=== PATIENT | female | born 1980 | race Hispanic/Latino ===

== ENCOUNTER 2024-06-04 06:53 | Inpatient (IN) | payer OTHER ==
[2024-06-04] VITALS (45 sets, daily range): BP systolic 101–145; BP diastolic 67–100; PULSE 62–132; RESP 18–58; O2SAT 99–100
[~2024-06-04] VITALS: Ht 154.9 cm; Wt 84.2 kg
[2024-06-04 07:14] LABS: BASOPHILS # (AUTO) 0.06 K/uL (0.00-0.20); BASOPHILS % (AUTO) 0.5 % (0.0-5.0); EOSINOPHILS % (AUTO) 0.9 % (0.0-8.0); HEMATOCRIT 36.6 % (36-48); IMMATURE GRANULOCYTE ABSOLUTE 0.04 K/uL (0-1); LYMPHOCYTES % (AUTO) 18.5 % (21.0-51.0); MEAN CORPUSCULAR HEMOGLOBIN 32.7 pg (27.0-33.0); MEAN CORPUSCULAR HGB CONC 35.8 g/dL (32.0-36.0); MEAN CORPUSCULAR VOLUME 91.3 fL (79-99); MONOCYTES # (AUTO) 0.5 K/uL (0.1-1.0); MONOCYTES % (AUTO) 4.1 % (3.0-13.0); NEUTROPHILS # (AUTO) 8.3 K/uL (1.8-7.7); NEUTROPHILS % (AUTO) 75.6 % (40.0-77.0); PLATELET COUNT (AUTO) 351 K/uL (130-400); RED BLOOD CELL COUNT(AUTO) 4.01 MIL/uL (4.00-5.50); RED CELL DISTRIBUTION WIDTH 12.8 % (11.0-15.5); WHITE BLOOD COUNT (AUTO) 10.9 K/uL (4.8-10.8)
[2024-06-04 07:25] LABS: CARBON DIOXIDE 20 mmol/L (21-32); CHLORIDE 106 mmol/L (101-111); CREATININE 0.9 mg/dL (0.5-1.0); GLOMERULAR FILTR. RATE CALC 82 mL/min (>90); GLUCOSE,RANDOM 151 mg/dL (70-105); POTASSIUM 3.3 mmol/L (3.5-5.1); SODIUM SERUM 141 mmol/L (136-145); UREA NITROGEN, BLOOD 5 mg/dL (7-18)
[2024-06-04 07:29] LABS: ALANINE AMINOTRANSFERASE 21 U/L (12-78); ALBUMIN 3.7 g/dL (3.5-5.0); ALCOHOL, BLOOD 58 mg/dL (0-10); ASPARTATE AMINOTRANSFERASE 19 U/L (10-37); BILIRUBIN,TOTAL 0.3 mg/dL (0.2-1.0); TOTAL PROTEIN, SERUM 7.9 g/dL (6.0-8.3)
[2024-06-04 07:31] LABS: ACETAMINOPHEN < 1 mcg/mL (10-30); SALICYLATE < 2.8 mg/dL (2.8-20.0)
[2024-06-04 08:18] LABS: AMPHET/METH SCREEN,URINE POSITIVE (NEGATIVE); BARBITURATE SCREEN, URINE NEGATIVE (NEGATIVE); BENZODIAZEPINES SCREEN,URINE POSITIVE (NEGATIVE); CANNABINOID SCREEN,URINE NEGATIVE (NEGATIVE); COCAINE SCREEN,URINE POSITIVE (NEGATIVE); OPIATE SCREEN,URINE NEGATIVE (NEGATIVE); PHENCYCLIDINE SCREEN,URINE NEGATIVE (NEGATIVE)
[2024-06-04 08:56] LABS: ABG BASE EXCESS -7.7 mmol/L (-2.0-3.0); ABG HCO3 15.8 mmol/L (21.0-28.0); ABG OXYGEN SATURATION 98.2 % (95.0-99.0); ABG PCO2 28 mmHg (32-45); ABG PH 7.374 (7.35-7.450); PO2, ARTERIAL BG 115.4 mmHg (83.0-108.0); VENT MODE, BG AC (ROOM AIR)
[2024-06-04] MEDS ORDERED: DiphenhydrAMINE HCL 50 MG/ML VIAL IV PRN (09:00)
[2024-06-04] MEDS ORDERED: CHLORDIAZEPOXIDE HCL 25 MG CAP PO PRN (09:00)
[2024-06-04] MEDS ORDERED: NITROGLYCERIN 0.4 MG SL TAB SL PRN (09:00)
[2024-06-04] MEDS ORDERED: ENOXAPARIN SODIUM 40 MG/0.4 ML SYRINGE SQ SCH (09:00)
[2024-06-04] MEDS ORDERED: PHARMACY COMMUNICATION MISC PRN (09:00)
[2024-06-04] MEDS ORDERED: LORAZEPAM 2 MG/ML 1 ML VIAL IVP PRN (09:00)
[2024-06-04] MEDS ORDERED: MAG/ALUM/SIMETH 30 ML UDCUP PO PRN (09:00)
[2024-06-04] MEDS ORDERED: LACTULOSE 20 GM/30 ML UDCUP PO PRN (09:00)
[2024-06-04] MEDS ORDERED: GUAIFENESIN-DM 200/20 MG 10 ML PO PRN (09:00)
[2024-06-04] MEDS: PROPOFOL 1000 MG/100 ML 100 ML IV ONE (09:15)
[2024-06-04] MEDS: 0.9%NACL 1000ML 1,000 ML IV SCH ×2 (09:17→10:23)
[2024-06-04] MEDS: THIAMINE HCL 100 MG, FOLIC ACID 1 MG, M.V.I. IV [ADULT] 10 ML in 0.9%NACL 1000ML 1,000 ML IV SCH (10:23)
[2024-06-04] MEDS: ARTIFICAL TEARS SOL 15 ML OU SCH (11:00)
[2024-06-04] MEDS: DEXMEDETOMIDINE 400MCG/NS100ML IV SCH (11:53)
[2024-06-04] MEDS ORDERED: ROCURONIUM BROMIDE 10MG/1ML 5ML VL IV ONE (13:41)
[2024-06-04] MEDS ORDERED: EPINEPHRINE 1MG/10ML(1:10,000) 0.1 MG/ML SYG IVP ONE (13:42)
[2024-06-04 15:41] LABS: APPEARANCE,URINE CLEAR (CLEAR); BILIRUBIN,URINE NEGATIVE (NEGATIVE); COLOR,URINE LIGHT-YELLOW (YELLOW); GLUCOSE, URINE (UA) NEGATIVE (NEGATIVE); KETONES,URINE NEGATIVE (NEGATIVE); LEUKOCYTE ESTERASE ,URINE NEGATIVE Leu/uL (NEGATIVE); NITRATE,URINE NEGATIVE (NEGATIVE); OCCULT BLOOD,URINE NEGATIVE (NEGATIVE); PH,URINE 5.5 (5.0-8.0); PROTEIN,URINE 30 mg/dL (NEGATIVE); UROBILINOGEN,URINE 0.2 mg/dL (0.2-1.0)
[2024-06-04 15:43] LABS: HCG,QUALITATIVE URINE NEGATIVE (NEGATIVE)
[2024-06-04 15:44] LABS: ADD UA MICROSCOPIC YES
[2024-06-04 15:50] LABS: MUCUS,URINE RARE LPF (None Seen); SQUAMOUS EPITHELIAL CELL,UR RARE /HPF (0-2); WBC,URINE 0-1 /HPF (0-1)
[2024-06-04] MEDS: PROPOFOL 1000 MG/100 ML IV PRN (16:41)
[2024-06-04] MEDS: CHLORHEXIDINE GLUCONATE 15 ML MOUTHWASH MM SCH (16:43)
[2024-06-04] MEDS ORDERED: MAGNESIUM 2GM PREMIX 50ML 50 ML IV PRN (17:00)
[2024-06-04] MEDS ORDERED: KCL 20 MEQ ERTAB PO PRN (17:00)
[2024-06-04] MEDS ORDERED: POTASSIUM CHLORIDE 10% ELIXIR 20 MEQ/15 ML UDCUP PO PRN (17:00)
[2024-06-04] MEDS ORDERED: POTASSIUM CHLORIDE 20MEQ/100ML 100 ML IV PRN ×2 (17:00)
[2024-06-04 17:23] LABS: COVID19 (SARS ANTIGEN RAPID) PRESUMPTIVE NEGATIVE (NEGATIVE); INFLUENZA TYPE A Negative For Type A (NEGATIVE); INFLUENZA TYPE B Negative For Type B (NEGATIVE)
[2024-06-04] MEDS: POTASSIUM CHLORIDE 10% ELIXIR 20 MEQ/15 ML UDCUP PO PRN (17:50)
[2024-06-04] MEDS: CEFTRIAXONE 2GM VIAL IVPB SCH (17:50)
[2024-06-04] MEDS: PANTOPRAZOLE 40 MG/VIAL IVP SCH (20:50)
[2024-06-05] VITALS (51 sets, daily range): BP systolic 101–138; BP diastolic 70–97; PULSE 61–101; RESP 16–29; TEMP 99.1; O2SAT 96–100
[2024-06-05 03:35] LABS: ABG BASE EXCESS -2.4 mmol/L (-2.0-3.0); ABG HCO3 18.7 mmol/L (21.0-28.0); ABG PCO2 24 mmHg (32-45); ABG PH 7.504 (7.35-7.450); DEVICE COMMENT LR PAULIERN; PO2, ARTERIAL BG 134.7 mmHg (83.0-108.0); VENT MODE, BG AC (ROOM AIR)
[2024-06-05 04:10] LABS: BASOPHILS # (AUTO) 0.03 K/uL (0.00-0.20); BASOPHILS % (AUTO) 0.3 % (0.0-5.0); EOSINOPHILS # (AUTO) 0.17 K/uL (0.00-0.70); EOSINOPHILS % (AUTO) 1.8 % (0.0-8.0); HEMATOCRIT 29.7 % (36-48); IMMATURE GRANULOCYTE ABSOLUTE 0.03 K/uL (0-1); LYMPHOCYTES # (AUTO) 1.6 K/uL (1.0-4.8); LYMPHOCYTES % (AUTO) 17.4 % (21.0-51.0); MEAN CORPUSCULAR HEMOGLOBIN 31.7 pg (27.0-33.0); MEAN CORPUSCULAR HGB CONC 34.7 g/dL (32.0-36.0); MEAN CORPUSCULAR VOLUME 91.4 fL (79-99); MONOCYTES # (AUTO) 0.5 K/uL (0.1-1.0); MONOCYTES % (AUTO) 4.8 % (3.0-13.0); NEUTROPHILS % (AUTO) 75.4 % (40.0-77.0); PLATELET COUNT (AUTO) 249 K/uL (130-400); RED BLOOD CELL COUNT(AUTO) 3.25 MIL/uL (4.00-5.50); RED CELL DISTRIBUTION WIDTH 12.9 % (11.0-15.5); WHITE BLOOD COUNT (AUTO) 9.3 K/uL (4.8-10.8)
[2024-06-05 04:29] LABS: ALBUMIN 2.6 g/dL (3.5-5.0); BILIRUBIN,TOTAL 0.4 mg/dL (0.2-1.0); CREATININE 0.7 mg/dL (0.5-1.0); MAGNESIUM 1.8 mg/dL (1.80-2.40); PHOSPHORUS 1.6 mg/dL (2.5-4.9); TOTAL PROTEIN, SERUM 5.9 g/dL (6.0-8.3)
[2024-06-05 04:31] LABS: POTASSIUM 2.9 mmol/L (3.5-5.1)
[2024-06-05] MEDS: MAGNESIUM 2GM PREMIX 50ML 50 ML IV PRN (04:49)
[2024-06-05] MEDS ORDERED: POTASSIUM PHOS 15 mMOL+NS250ML 250 ML IV PRN (06:30)
[2024-06-05] MEDS: THIAMINE HCL 100 MG/ML 2ML VIAL IVP SCH (08:52)
[2024-06-05] MEDS: FOLIC ACID 5 MG/ML VIAL IV SCH (08:53)
[2024-06-05] MEDS: DIAZEPAM 5 MG TABLET PO PRN (08:54)
[2024-06-05] MEDS: MULTIVITAMIN TABLET PO SCH (08:55)
[2024-06-05] MEDS: POLYETHYLENE GLYCOL 3350 17 GM POWD.PACK PO SCH (09:00)
[2024-06-05 09:10] LABS: MAGNESIUM 1.6 mg/dL (1.80-2.40)
[2024-06-05] MEDS: POTASSIUM CHLORIDE 20MEQ/100ML 100 ML IV PRN (09:47)
[2024-06-05] MEDS: ONDANSETRON 4MG INJ IV PRN (11:30)
[2024-06-05] MEDS: KCL 20 MEQ ERTAB PO SCH (13:00)
[2024-06-05] MEDS ORDERED: DEXT15CA PO (13:52)
[2024-06-05] MEDS ORDERED: BUPR-49 PO (13:52)
[2024-06-05] MEDS ORDERED: PRAZ1CAP5 PO (13:52)
[2024-06-05] MEDS ORDERED: CLON2TAB11 PO (13:52)
[2024-06-05 13:55] LABS: MAGNESIUM 2.7 mg/dL (1.80-2.40)
[2024-06-05] MEDS: ACETAMINOPHEN 325 MG TAB PO PRN (16:31)
[2024-06-05] MEDS: SUCRALFATE 1 GM TABLET PO SCH (20:18)
[2024-06-06] VITALS (7 sets, daily range): BP systolic 115–133; BP diastolic 77–88; PULSE 83–98; RESP 18; O2SAT 92–100
[2024-06-06] MEDS: ACETAMINOPHEN 325 MG TAB PO PRN (00:22)
[2024-06-06] MEDS: IPRATROPIUM/ALBUTEROL SULFATE 3 ML SOLUTION IH ONE (00:36)
[2024-06-06 03:23] LABS: BASOPHILS # (AUTO) 0.06 K/uL (0.00-0.20); BASOPHILS % (AUTO) 0.6 % (0.0-5.0); EOSINOPHILS # (AUTO) 0.29 K/uL (0.00-0.70); EOSINOPHILS % (AUTO) 2.7 % (0.0-8.0); HEMATOCRIT 31.9 % (36-48); IMMATURE GRANULOCYTE ABSOLUTE 0.03 K/uL (0-1); LYMPHOCYTES # (AUTO) 1.7 K/uL (1.0-4.8); LYMPHOCYTES % (AUTO) 15.7 % (21.0-51.0); MEAN CORPUSCULAR HEMOGLOBIN 32.4 pg (27.0-33.0); MEAN CORPUSCULAR HGB CONC 34.2 g/dL (32.0-36.0); MEAN CORPUSCULAR VOLUME 94.9 fL (79-99); MONOCYTES # (AUTO) 0.6 K/uL (0.1-1.0); MONOCYTES % (AUTO) 5.6 % (3.0-13.0); NEUTROPHILS # (AUTO) 8.1 K/uL (1.8-7.7); NEUTROPHILS % (AUTO) 75.1 % (40.0-77.0); PLATELET COUNT (AUTO) 260 K/uL (130-400); RED BLOOD CELL COUNT(AUTO) 3.36 MIL/uL (4.00-5.50); RED CELL DISTRIBUTION WIDTH 13.1 % (11.0-15.5); WHITE BLOOD COUNT (AUTO) 10.7 K/uL (4.8-10.8)
[2024-06-06 03:32] LABS: CREATININE 0.9 mg/dL (0.5-1.0); MAGNESIUM 2.1 mg/dL (1.80-2.40); PHOSPHORUS 2.5 mg/dL (2.5-4.9); POTASSIUM 3.5 mmol/L (3.5-5.1)
[2024-06-06] MEDS: KCL 20 MEQ ERTAB PO PRN (04:59)
[2024-06-06] MEDS ORDERED: COMPOUND IV REFRIGERATED 1 EACH IVSOLN MISC PRN (08:00)
== END 2024-06-06 15:05 | DRG 917 ==
LOC: EDH 06:53 → EDHIP 08:48 → 2CH 12:11 → 2BH 15:15 → 2DH 06-05 15:29
PROVIDERS: ADMIT Internal Medicine; ATTEND Internal Medicine
PROC: 0BH17EZ Insertion of Endotracheal Airway into Trachea, Via Natural or Artificial Opening (ICD-10-PCS; principal; 2024-06-04)
PROC: 5A1945Z Respiratory Ventilation, 24-96 Consecutive Hours (ICD-10-PCS; 2024-06-04)
DX: T42.4X4A Poisoning by benzodiazepines, undetermined, initial encounter (principal); G92.8 Other toxic encephalopathy; J96.01 Acute respiratory failure with hypoxia; S60.222A Contusion of left hand, initial encounter; F43.10 Post-traumatic stress disorder, unspecified; F31.9 Bipolar disorder, unspecified; F14.10 Cocaine abuse, uncomplicated; F10.10 Alcohol abuse, uncomplicated; E87.6 Hypokalemia; F41.9 Anxiety disorder, unspecified; F90.9 Attention-deficit hyperactivity disorder, unspecified type; X78.9XXA Intentional self-harm by unspecified sharp object, initial encounter; Y04.0XXA Assault by unarmed brawl or fight, initial encounter
CPT/HCPCS: 31500; 36415; 36600; 70450; 71045; 73130; 80048; 80053; 80305; 81001; 81025; 82140; 82803; 83605; 83735; 84100; 84132; 84443; 84703; 85025; 87071; 87205; 87426; 87804; 92522; 92610; 93005; 94002; 94003; 94640; 94664; 99291; G0378; G0481; J0171; J0696; J2405; J2470; J2704; J3411; J3475; J3480; J3490; J7030; A9900

== ENCOUNTER → 2025-02-18 | Outpatient (CLI) | payer OTHER ==
[~2025-02-18] MED LIST: BUPR-49 PO; CLON2TAB11 PO; DEXT15CA PO; PRAZ1CAP5 PO
== END | disposition home or self-care (01) ==
LOC: RAH 13:26
PROVIDERS: ATTEND Obstetrics & Gynecology
DX: Z12.31 Encounter for screening mammogram for malignant neoplasm of breast (principal)
CPT/HCPCS: 77067

== ENCOUNTER 2025-05-19 12:48 | Emergency (ER) | payer OTHER ==
[~2025-05-19] VITALS: Ht 157.5 cm; Wt 81.2 kg
--- NOTE | 2025-05-19 14:44 | ERN ---
ED Note History of Present Illness Stated Complaint: HEADACHES Chief Complaint: Headache Time Seen by MD: 12:55 Time Seen by Midlevel: 12:58 Dictation: 44-year-old female complaining of a headache that has been going on for two weeks. Patient states she usually has migraines that caused photophobia and phonophobia. Patient states has a time if she has a migraine she also gets a little bit of blurry vision this has been going on for six years. Patient is requesting a CT of the head. Allergies: Coded Allergies: Unable to Assess (Unverified Allergy, Unknown, 06/04/24) Home Meds Reported Medications Prazosin HCl (Prazosin HCl) 1 Mg Capsule, 1 CAP PO HS for nightmares 06/05/24 Bupropion HCl (Bupropion Xl) 150 Mg Tab.er.24h, 1 TAB PO DAILY 06/05/24 Dextroamphetamine/Amphetamine (Dextroamp-Amphet ER 15 mg Cap) 15 Mg Cap.er.24h, 1 CAP PO DAILY 06/05/24 Clonazepam (Clonazepam) 2 Mg Tablet, 1 TAB PO BID PRN for anxiety prn for anxiety 06/05/24 Past Medical History Past Medical History: Anxiety, Depression Surgical History: Other Surgical History Other: OOPHRECTOMY LEFT, NOSE RECONTRUCTION AFTER DOG BITE Family History: Negative LMP: Apr 25, 2025 : 0 Review of System Dictation Constitutional: Negative for fever,chills, and weight loss Eyes: Negative for injury, pain,redness, and discharge ENT: Negative for injury,pain or swelling Cardiovascular: Negative for chest pain, palpitations, and edema Respiratory: Negative for shortness of breath, cough, and wheezing, Abdomen/GI: Negative for abdominal pain, nausea, vomiting, diarrhea, and constipation Back: Negative for injury and pain : Negative for injury, bleeding and discharge MS/Extremity: Negative for injury and deformity Skin: Negative for rash, and discoloration Neuro: Complaining of headache Psych: Negative for suicide ideation, homicidal ideation, and hallucinations Review of Systems: was completed Initial Vital Sign VS Vital Signs Date Time Temp Pulse Resp B/P (MAP) Pulse Ox O2 Delivery O2 Flow Rate FiO2 05/19/25 12:48 98.8 77 20 118/77 100 Room Air 0 05/19/25 15:10 21 Physical Exam Dictation General: awake, alert, NAD Head/Face: Normocephalic, atraumatic Eyes: PERRL, EOMI, vision at baseline ENT: oral cavity clear, TMs clear, no signs of infection Neck: Trachea midline, supple, no nuchal rigidity Cardiovascular: RRR, normal S1/S2, No MRGs, no JVD Respiratory: CTAB, no respiratory distress, No rales or wheezes Abdomen: Soft, non-tender, non-distended, normal bowel sounds, no guarding or rebound. Skin: Warm, dry, normal turgor, no rash MS/Extremity: Pulses equal, no cyanosis, neurovascular intact, FROM Neuro: COAx4, GCS 15, strength 5/5, CN 2-12 intact, normal cerebellar exam, normal gait, Psych: Normal behavior, mood, and affect normal Results (Laboratory/Radiology) CT Scan Comment: [address] [place] [id number] IMAGING REPORT Signed PATIENT: ADRIENNE DREW MR#: [id number] : 1980 SEX: F AGE: 44 LOCATION: [facility] ORDER [id number] STATUS: [facility] REPORT#: [id number] SERVICE [id number] REASON: headache > 2weeks ORDERING PHYSICIAN: CHUCK WHITFIELD NP PROCEDURE: HEAD WO - CT HEAD/BRAIN W/O CONTRAST EXAM: CT Head Without IV contrast. CLINICAL HISTORY: headache > 2weeks TECHNIQUE: Axial computed tomography images of the head/brain without intravenous contrast. COMPARISON: Study dated 06/04. FINDINGS: BRAIN: No evidence of acute hemorrhage. No mass lesion. No CT evidence for acute territorial infarct. No midline shift or extra-axial collections. VENTRICLES: No hydrocephalus. ORBITS: The orbits are unremarkable. SINUSES AND MASTOIDS: The paranasal sinuses and mastoid air cells are clear. BONES: No fracture. SOFT TISSUES: Unremarkable. IMPRESSION: 1. No acute intracranial findings. /[place] DICTATED BY: AGUSTO JACKSON Jr., MD DATE: 05/19/25 1550 ELECTRONICALLY SIGNED BY: AGUSTO JACKSON Jr., MD DATE: 05/19/25 155 ED Course ED Course Orders Procedure Category Date Status Time 0.9%Nacl 1000ml (Ns PHA 05/19/25 Complete 1000ml) 12:55 Metoclopramide 10 PHA 05/19/25 Complete Mg/2 Ml Vial (Reglan 1 12:55 Diphenhydramine Hcl PHA 05/19/25 Complete (Benadryl Inj) 12:55 Dexamethasone 4mg/Ml PHA 05/19/25 Complete 1ml Vial (Dexametha 12:56 Ct Head/Brain W/O CT 05/19/25 Resulted Contrast 12:56 Current Medications Medications (Trade) Dose Ordered Sig/Yue Route PRN Reason Start Time Stop Time Status Last Admin Dose Admin Dexamethasone Sodium Phosphate (dexaMETHasone 4MG/ML 1ML VIAL) 4 mg ONCE STAT IV 05/19/25 12:56 05/19/25 12:58 DC 05/19/25 15:37 Diphenhydramine HCl (BENAdryl INJ) 25 mg ONCE STAT IV 05/19/25 12:55 05/19/25 12:57 DC Metoclopramide HCl (regLAN 10MG IV) 10 mg ONCE STAT IVP 05/19/25 12:55 05/19/25 12:57 DC 05/19/25 15:37 Sodium Chloride 1,000 ml @ 1,000 mls/hr Q1H STAT IV 05/19/25 12:55 05/19/25 13:54 DC 05/19/25 15:38 Vital Signs Date Time Temp Pulse Resp B/P (MAP) Pulse Ox O2 Delivery O2 Flow Rate FiO2 05/19/25 15:10 98.8 72 20 118/77 100 Room Air* 0 21 05/19/25 12:48 98.8 77 20 118/77 100 Room Air 0 Medical Decision Making MDM MDM: 44-year-old female complaining of a headache that has been going on for two weeks. Patient states she usually has migraines that caused photophobia and phonophobia. Patient states has a time if she has a migraine she also gets a little bit of blurry vision this has been going on for six years. Patient is requesting a CT of the head. Patient also commented she has not MRI pending to be done in the next few weeks for cervical spine. CT of the head showed no acute finding. After medications patient has severe sounds better. Discussed with the patient she needs to follow up outpatient with PCP and to return to the hospital as needed. Patient verbalized understanding, answered all questions. Differential diagnosis: On CHF, brain tumor, headache, migraine Rationale: Tests considered and ordered secondary to shared decision making include: Previous outside records reviewed: Old ER visits. Risk of complication and/or morbidity or mortality of patient management: None Medications-Per medication reconciliation Need for hospitalization: Patient does not meet criteria for hospitalization. Need for emergency major/minor surgery: No There are no social concerns with this patient. Prescription drug management Prescriptions will include symptomatic care Patient's prior external medical records from other ER visits were reviewed by me as indicated. Prior testing and results from previous visits were reviewed. Prior tests were taken into account with medical decision making and resource utilization, independent historian/historians were used to obtain complete medical history. I independently interpreted the test that were performed, results were reviewed by me and considered findings on radiology if ordered. Medical management and examination interpretation discussions were had by me with other qualified healthcare professionals as indicated for the patient's care. DX & DISP Disposition: Discharge Departure Impression: Primary Impression: Head ache Condition: Stable Additional Instructions: Your appointment for your MRI. Your CT scan of the head was normal. Follow up with your primary doctor in 1-2 days. Take [id number] medication for pain control. Referrals: SELF,REFERRAL (PCP) Time of Disposition: 16:11 I have reviewed the case, and I agree with, Diagnosis and Plan CHUCK WHITFIELD NP May 19, 2025 14:44
--- NOTE | 2025-05-19 14:50 | HMCIMG ---
EXAM: CT Head Without IV contrast. CLINICAL HISTORY: headache > 2weeks TECHNIQUE: Axial computed tomography images of the head/brain without intravenous contrast. COMPARISON: Study dated 06/04. FINDINGS: BRAIN: No evidence of acute hemorrhage. No mass lesion. No CT evidence for acute territorial infarct. No midline shift or extra-axial collections. VENTRICLES: No hydrocephalus. ORBITS: The orbits are unremarkable. SINUSES AND MASTOIDS: The paranasal sinuses and mastoid air cells are clear. BONES: No fracture. SOFT TISSUES: Unremarkable. IMPRESSION: 1. No acute intracranial findings. /[place]
[2025-05-19] MEDS: 0.9%NACL 1000ML 1,000 ML IV STA (15:38)
[2025-05-19 16:23] VITALS: BP 121/74; PULSE 70; RESP 20; TEMP 98.8; O2SAT 100
== END 2025-05-19 16:24 | disposition home or self-care (01) ==
LOC: EDH 12:48
DX: R51.9 Headache, unspecified (principal); F41.9 Anxiety disorder, unspecified; F32.A Depression, unspecified; Z79.899 Other long term (current) drug therapy
CPT/HCPCS: 99285; 96374; 70450; 96375; J1100; J1200; J2765